=== PATIENT | male | born 1975 | race African-American/Black ===

== ENCOUNTER 2021-04-25 09:49 | Emergency (ER) | payer OTHER ==
[~2021-04-25] VITALS: Ht 182.9 cm; Wt 77.1 kg
[~2021-04-25 09:49] MED LIST: CIPRO500 MG PO; FLAGYL500 MG PO; NOHOMEMEDICATIONS; PHENERGAN 25 MG25 M1 PO; PRILOSEC 20 MG20 MG PO
[2021-04-25 09:56] VITALS: BP 152/96
== END 2021-04-25 11:00 | disposition home or self-care (01) ==
LOC: ER 09:49
DX: M25.511 Pain in right shoulder (principal); F17.210 Nicotine dependence, cigarettes, uncomplicated; W00.2XXA Other fall from one level to another due to ice and snow, initial encounter; Y93.89 Activity, other specified; Y92.89 Other specified places as the place of occurrence of the external cause; Y99.8 Other external cause status